=== PATIENT | male | born 2000 | race Caucasian/White ===

== ENCOUNTER 2024-12-21 18:55 | Emergency (ER) | payer OTHER ==
[~2024-12-21] VITALS: Ht 162.6 cm; Wt 59.0 kg
[2024-12-21 19:04] VITALS: TEMP 36.8; O2SAT 100
[2024-12-21] MEDS: BACITRACIN ZINC OINT UDPKT TOP ONE (20:15)
[2024-12-21] MEDS: LIDOCAINE HCL/PF 1% 10 MG/ML 5ML VIAL INFIL ONE (20:15)
[2024-12-21 20:24] VITALS: TEMP 98.2
[2024-12-21] MEDS: ACETAMINOPHEN 325MG TABLET PO ONE (20:24)
[2024-12-21 21:57] VITALS: BP 134/81; PULSE 68; RESP 16; O2SAT 98
== END 2024-12-21 21:48 | disposition home or self-care (01) ==
LOC: ER 18:55
DX: S61.211A Laceration without foreign body of left index finger without damage to nail, initial encounter (principal); W26.0XXA Contact with knife, initial encounter; Y93.89 Activity, other specified; Y92.89 Other specified places as the place of occurrence of the external cause; Y99.8 Other external cause status
CPT/HCPCS: 99283; 29130; 12001; J2003